=== PATIENT | female | born 1970 | race Caucasian/White ===

== ENCOUNTER → 2016-10-15 | Outpatient (CLI) | payer MEDICAID ==
--- NOTE | 2016-10-15 11:59 | KCIC ---
PROCEDURE MR of the right knee HISTORY Right knee pain. Injury 6 months ago. Generalized pain and swelling. TECHNIQUE Standard multiplanar sequences are obtained. FINDINGS There is some minimal signal at the undersurface of the posterior horn of the medial meniscus really only seen on a single sagittal slice, suspicious for a small tear but too small to be definitive. No evidence of a lateral meniscal tear. The anterior and posterior cruciate ligaments are intact. Medial collateral ligament intact. Iliotibial band unremarkable. Fibular collateral ligament, biceps femoris tendon and popliteus tendon are intact. Small joint effusion. No evidence of an osteochondral loose body. Moderate chondromalacia at the patella. Severe chondromalacia at the medial femoral condyle, less so at the medial tibial plateau. Mild chondromalacia at the lateral tibial plateau. No bone lesion or acute fracture. No acute soft tissue injury. IMPRESSION 1. Small undersurface defect at the posterior horn of the medial meniscus compatible with a possible small tear. 2. Primary osteoarthritis, greatest at the medial femoral condyle. Electronically signed by: Ras Dumont MD (Oct 15, 2016 11:57:41)
== END | disposition home or self-care (01) ==
LOC: KCIC MRI 10:05
PROVIDERS: ATTEND Physician Assistant
DX: M25.561 Pain in right knee (principal); M17.11 Unilateral primary osteoarthritis, right knee
CPT/HCPCS: 73721

== ENCOUNTER → 2017-11-06 | Day surgery (SDC) | payer OTHER ==
[~2017-11-06] MED LIST: HYDROmorphone 2 MG/ML VIAL IV; LIDOCAINE 1% PF 2 ML VIAL. ID; MORPHINE SULFATE 2 MG/ML DISP.SYRIN. IV; ONDANSETRON PF 4 MG/2 ML VIAL. IV; PROCHLORPERAZINE 10 MG/2 ML VIAL. IV; PROPOFOL 40 ML IV; fentaNYL PF VIAL 100 MCG/2 ML VIAL IV
[2017-11-06] MEDS: IV RINGERS,LACTATED 1000ML 1,000 ML IV (10:31)
[2017-11-06 10:43] LABS: NEG OBC UR NEG; POS OBC UR POS; U PREG PATIENT NEGATIVE (NEG)
== END | disposition home or self-care (01) ==
LOC: ENDOS 09:57
DX: K29.50 Unspecified chronic gastritis without bleeding (principal); K31.89 Other diseases of stomach and duodenum; I10 Essential (primary) hypertension; K21.9 Gastro-esophageal reflux disease without esophagitis; M19.90 Unspecified osteoarthritis, unspecified site; E03.9 Hypothyroidism, unspecified; F41.9 Anxiety disorder, unspecified; Z88.2 Allergy status to sulfonamides; Z90.49 Acquired absence of other specified parts of digestive tract; Z88.6 Allergy status to analgesic agent
CPT/HCPCS: 43239; 81025; 88305; J2704

== ENCOUNTER 2018-01-19 07:24 | Day surgery (SDC) | payer OTHER ==
[~2018-01-19 07:24] MED LIST changes: -HYDROmorphone 2 MG/ML VIAL IV; -MORPHINE SULFATE 2 MG/ML DISP.SYRIN. IV; +MORPHINE SULFATE 4 MG/ML DISP.SYRIN. IV; -PROCHLORPERAZINE 10 MG/2 ML VIAL. IV; -PROPOFOL 40 ML IV
[2018-01-19 07:54] LABS: NEG OBC UR NEG; POS OBC UR POS; U PREG PATIENT NEGATIVE (NEG)
[2018-01-19] MEDS ORDERED: ceFAZolin 2GM PREMIX 2 GM/50 ML BAG IV (08:00)
[2018-01-19] MEDS: IV RINGERS,LACTATED 1000ML 1,000 ML IV (08:11)
[2018-01-19] MEDS ORDERED: DEXAMETHASONE SOD PHOS 20 MG/5 ML VIAL. (08:37)
[2018-01-19] MEDS ORDERED: ONDANSETRON PF 4 MG/2 ML VIAL. (08:37)
[2018-01-19] MEDS ORDERED: PROPOFOL 20 ML IV (08:37)
[2018-01-19] MEDS ORDERED: LIDOCAINE 1% PF 5 ML VIAL. (08:37)
[2018-01-19] MEDS ORDERED: fentaNYL PF VIAL 100 MCG/2 ML VIAL (08:38)
[2018-01-19] MEDS ORDERED: SURGICEL HEMOSTAT 4X8 EACH. (08:38)
[2018-01-19] MEDS ORDERED: IOHEXOL 300 MG/ML 100ML VIAL. ×2 (08:38→08:40)
[2018-01-19] MEDS ORDERED: MIDAZOLAM HCL/PF 2 MG/2 ML VIAL. (08:38)
[2018-01-19] MEDS ORDERED: BUPIVACAINE-EPI 0.25%-1:200000 50 ML VIAL. (08:38)
[2018-01-19] MEDS ORDERED: GLUCAGON,HUMAN RECOMBINANT 1 MG/ML VIAL. ×2 (08:38→08:40)
[2018-01-19] MEDS ORDERED: SUCCINYLCHOLINE 200 MG/10 ML VIAL. (08:42)
[2018-01-19] MEDS ORDERED: ROCURONIUM 50 MG/5 ML VIAL. (08:42)
[2018-01-19] MEDS ORDERED: GLYCOPYRROLATE 1 MG/5 ML VIAL. (10:22)
[2018-01-19] MEDS ORDERED: NEOSTIGMINE METHYLSULFATE 5 MG/5 ML SYRINGE. (10:23)
[2018-01-19] MEDS: fentaNYL PF VIAL 100 MCG/2 ML VIAL IV ×4 (11:04→11:33)
[2018-01-19] MEDS: PROCHLORPERAZINE 10 MG/2 ML VIAL. IV (12:40)
[2018-01-19] MEDS: oxyCODONE/APAP 5/325 1 TAB TABLET PO (13:16)
== END 2018-01-19 13:40 | disposition home or self-care (01) ==
LOC: SURG 07:24
DX: K80.10 Calculus of gallbladder with chronic cholecystitis without obstruction (principal); E66.09 Other obesity due to excess calories; F31.9 Bipolar disorder, unspecified; Z86.73 Personal history of transient ischemic attack (TIA), and cerebral infarction without residual deficits; Z98.890 Other specified postprocedural states
CPT/HCPCS: 47563; 74300; 81025; 88304; J0330; J0690; J0780; J1100; J1610; J2250; J2270; J2405; J2704; J2710; J3010; J3490; Q9967

== ENCOUNTER → 2020-02-25 | Outpatient (CLI) | payer OTHER ==
[2018-01-19 12:32] VITALS: BP 112/65
[~2020-02-25] MED LIST changes: +ALPR2TAB2 PO; +ARIP5TAB13 PO; +BUSP10TA PO; +CETI10TA16 PO; +FLUO10CA13 PO; +FLUO40CA2 PO; +FURO20TA3 PO; +GABA600T7 PO; +LAMO200T6 PO; +LEVO112T49 PO; +LEVO75TA5 PO; -LIDOCAINE 1% PF 2 ML VIAL. ID; +LISI1TAB19 PO; +METO25TA4 PO; -MORPHINE SULFATE 4 MG/ML DISP.SYRIN. IV; -ONDANSETRON PF 4 MG/2 ML VIAL. IV; +OXYC-325 PO; +OXYC1TAB15 PO; +OXYC1TAB22 PO; +PANT40TA77 PO; +PRAZ2CAP2 PO; +QUET100T4 PO; +SENN8.6T11 PO; -fentaNYL PF VIAL 100 MCG/2 ML VIAL IV
[2020-02-25 15:44] LABS: BASO % 1 % (0-3); EOS # 0.3 x10^3/uL (0.0-0.7); EOS % 5 % (0-3); HEMATOCRIT 31.8 % (36.0-47.0); HEMOGLOBIN 10.6 g/dL (12.0-15.5); LYMPH # 2.9 x10^3/uL (1.0-4.8); LYMPH % 40 % (24-48); MEAN CORPUSCULAR HEMOGLOBIN 28 pg (25-35); MEAN CORPUSCULAR HGB CONC 33 g/dL (31-37); MEAN CORPUSCULAR VOLUME 83 fL (79-100); MONO # 0.5 x10^3/uL (0.0-1.1); MONO % 7 % (0-9); NEUT # 3.5 x10^3/uL (1.8-7.7); NEUT % 48 % (31-73); PLATELET COUNT 394 x10^3/uL (140-400); RED BLOOD COUNT 3.81 x10^6/uL (3.50-5.40); RED CELL DISTRIBUTION WIDTH 16.4 % (11.5-14.5); WHITE BLOOD COUNT 7.3 x10^3/uL (4.0-11.0)
[2020-02-25 15:55] LABS: PROTHROMBIN TIME PATIENT 12.6 SEC (11.7-14.0)
[2020-02-25 16:06] LABS: ALBUMIN 3.7 g/dL (3.4-5.0); CALCIUM 8.9 mg/dL (8.5-10.1); CREATININE 1.1 mg/dL (0.6-1.0); GFR 53.2; POTASSIUM 3.8 mmol/L (3.5-5.1); TOTAL BILIRUBIN 0.2 mg/dL (0.2-1.0); TOTAL PROTEIN 7.5 g/dL (6.4-8.2)
[2020-02-29 00:07] LABS: HEMOGLOBIN A1C 5.9 % (4.8-5.6)
== END | disposition home or self-care (01) ==
LOC: LAB 15:07
PROVIDERS: ATTEND Neurological Surgery
DX: G56.22 Lesion of ulnar nerve, left upper limb (principal); Z01.812 Encounter for preprocedural laboratory examination; Z11.59 Encounter for screening for other viral diseases; Z88.8 Allergy status to other drugs, medicaments and biological substances; Z88.2 Allergy status to sulfonamides
CPT/HCPCS: 36415; 80053; 83036; 85025; 85610; 85730; 87635

== ENCOUNTER 2020-02-29 09:01 | Day surgery (SDC) | payer OTHER ==
[~2020-02-29 09:01] MED LIST changes: +BACITRACIN 50,000 UNIT in IV NORMAL SALINE 500ML BAG 500 ML IRR ONE; +DEXAMETHASONE SOD PHOS 4 MG/ML VIAL ONE; +HYDROmorphone 2 MG/ML VIAL IV PRN; +IV RINGERS,LACTATED 1000ML 1,000 ML IV SCH; +LIDOCAINE 1% PF 2 ML VIAL. ID PRN; +LIDOCAINE 2% PF 5 ML VIAL. ONE; +MORPHINE SULFATE 2 MG/ML VIAL. IV PRN; +ONDANSETRON PF 4 MG/2 ML VIAL. IV PRN; +ONDANSETRON PF 4 MG/2 ML VIAL. ONE; -OXYC-325 PO; +PROCHLORPERAZINE 10 MG/2 ML VIAL. IV PRN; +PROPOFOL 10 MG/ML (20ML) VIAL. IV ONE; -SENN8.6T11 PO; +ceFAZolin 2GM PREMIX 2 GM/50 ML BAG IV ONE; +fentaNYL PF VIAL 100 MCG/2 ML VIAL IV PRN; +fentaNYL PF VIAL 100 MCG/2 ML VIAL ONE
[2020-02-29] MEDS ORDERED: LIDOCAINE 1% Multi-Dose 20 ML VIAL. ONE (09:16)
[2020-02-29] MEDS ORDERED: ePHEDrine PF IN SALINE 50 MG/10 ML SYRINGE. IV ONE (11:18)
[2020-02-29] MEDS ORDERED: SEVOFLURANE 61 TO 120 MINUTES. IH ONE (11:49)
--- NOTE | 2020-02-29 12:13 | PDOC ---
BRIEF OPERATIVE NOTE Date: February 29, 2020 Pre-Op Diagnosis left cubital tunnel syndrome Post-Op Diagnosis same Procedure Performed left ulnar nerve decompression at the cubital tunnel Surgeon Senait Physician Relations Manager none Anesthesia Type: General Blood Loss 10mL Findings significant compression of ulnar nerve at left cubital tunnel Complications none apparent ZAC WOOD MD February 29, 2020 12:13
[2020-02-29] MEDS ORDERED: fentaNYL PF VIAL 100 MCG/2 ML VIAL ONE (12:16)
[2020-02-29] MEDS: fentaNYL PF VIAL 100 MCG/2 ML VIAL IV PRN ×2 (12:22→12:36)
[2020-02-29] MEDS ORDERED: OXYC-325 PO (12:52)
[2020-02-29] MEDS ORDERED: SENN8.6T11 PO (12:55)
[2020-02-29] MEDS ORDERED: oxyCODONE/APAP 5/325 1 TAB TABLET PO ONE ×2 (13:00)
[2020-02-29 13:05] VITALS: BP 158/85
--- NOTE | 2020-03-07 14:45 | OP ---
DATE OF SURGERY: 02/29/2020 SURGEON: Naveed Wood MD OPTOMETRIST/PRACTICE OWNER: None. PREOPERATIVE DIAGNOSIS: Left cubital tunnel syndrome. POSTOPERATIVE DIAGNOSIS: Left cubital tunnel syndrome. PROCEDURE: Left cubital tunnel release/ulnar nerve decompression at the left cubital tunnel. ANESTHESIA: General. COMPLICATIONS: None. INDICATIONS FOR THE PROCEDURE: The patient is a 49-year-old female who has symptoms and confirmed with EMG indicating significant left cubital tunnel syndrome. This has been refractory to multiple nonsurgical treatments. Please refer to the patient chart for additional details. DESCRIPTION OF PROCEDURE: After informed consent was obtained, the patient was brought to the operating room, was placed in the supine position with the left arm extended onto a table extension exposing the medial left elbow region. Ancef was instituted as prophylactic antibiotic and the left arm was prepped and draped in the usual sterile fashion. A curvilinear incision was planned over the medial left elbow centered over the region of the left cubital tunnel. Incision was made with a 15 blade scalpel. Blunt dissection techniques were utilized to dissect the underlying soft tissues, first proximally and then distally to the region of the left cubital tunnel and ulnar nerve was dissected free first proximal to the cubital tunnel. A small vessel loop was instituted around the nerve. Blunt dissection techniques were utilized to dissect the nerve distally to the region of the cubital tunnel. The cubital tunnel was divided ____ all preserved in the underlying ulnar nerve. Dissection was carried out distal to the cubital tunnel where the nerve was visualized to go between the two heads of the flexor carpi ulnaris. Decompression was verified proximally ____ and the nerve was noted to be very well decompressed confirmed by direct visualization as well as gentle palpation and observation of the nerve passed through the exposed anatomy with passive flexion and extension of the elbow. Once this was complete, pristine hemostasis was confirmed and achieved with some use of bipolar electrocautery as well as tamponade. The wound was generously irrigated with antibiotic irrigation. The subcutaneous tissues were then reapproximated with 3-0 Vicryl in interrupted inverted fashion. The skin was then reapproximated with 3-0 nylon in an interrupted vertical mattress fashion. Wound was dressed with Xeroform, Telfa, 4 x 4s, soft roll and Umair bandage in a ____ position. At the end of the procedure, all needle and sponge counts were correct x 2. The patient was extubated in the operative room and taken back to recovery in stable condition. There were no intraprocedural complications apparent. NAVEED WOOD MD DR: [email or web address] JOB#: [id number] / [id number]
== END 2020-02-29 13:57 | disposition home or self-care (01) ==
LOC: SURG 09:01
PROVIDERS: ATTEND Neurological Surgery
DX: G56.22 Lesion of ulnar nerve, left upper limb (principal); E03.9 Hypothyroidism, unspecified; F41.9 Anxiety disorder, unspecified; K21.9 Gastro-esophageal reflux disease without esophagitis; I10 Essential (primary) hypertension; E78.5 Hyperlipidemia, unspecified; Z79.899 Other long term (current) drug therapy; Z98.890 Other specified postprocedural states; Z88.1 Allergy status to other antibiotic agents
CPT/HCPCS: 36415; 64718; 81025; 86850; 86900; 86901; J0696; J1100; J2405; J2704; J3010; J3490; J7040